=== PATIENT | female | born 1940 | race Caucasian/White ===

== ENCOUNTER 2024-08-13 07:46 | Day surgery (SDC) | payer MEDICARE, BC ==
[2024-08-09 15:26] LABS: BASOPHILS # (AUTO) 0.1 X10'3 (0-0.2); EOSINOPHILS # (AUTO) 0.3 X10'3 (0-0.9); EOSINOPHILS % (AUTO) 3.7 % (0-6); HEMATOCRIT 42.6 % (35.0-45.0); HEMOGLOBIN 14.5 g/dl (12.0-16.0); LYMPHOCYTES # (AUTO) 2.4 X10'3 (1.1-4.8); LYMPHOCYTES % (AUTO) 33.5 % (21-51); MEAN CORPUSCULAR HEMOGLOBIN 31.5 PG (27.0-31.0); MEAN CORPUSCULAR VOLUME 92.6 FL (78-98); MEAN PLATELET VOLUME 6.4 FL (7.4-10.4); MONOCYTES # (AUTO) 0.4 X10'3 (0-0.9); MONOCYTES % (AUTO) 5.8 % (2-12); PLATELET COUNT 333 X10'3 (140-440); RED CELL DISTRIBUTION WIDTH 13.6 % (11.5-14.5); WHITE BLOOD COUNT 7.1 X10'3 (4.5-11.0)
[2024-08-09 16:03] LABS: ALANINE AMINOTRANSFERASE 25 U/L (12-78); ALBUMIN 3.6 G/DL (3.4-5.0); ALBUMIN/GLOBULIN RATIO 1.2 (1.1-1.5); ALKALINE PHOSPHATASE 111 IU/L (46-116); ANION GAP 4 (8-16); ASPARTATE AMINO TRANSFERASE 20 U/L (10-37); BILIRUBIN,TOTAL 0.3 MG/DL (0.1-1.0); BLOOD UREA NITROGEN 12 MG/DL (7-18); CALCIUM 10.3 MG/DL (8.5-10.1); CHLORIDE 106 MMOL/L (99-107); CREATININE 0.92 MG/DL (0.40-0.90); GLUCOSE 132 MG/DL (70-104); POTASSIUM 4.1 MMOL/L (3.5-5.1); SODIUM 140 MMOL/L (135-145); TOTAL CARBON DIOXIDE 29.8 MMOL/L (24-32); TOTAL PROTEIN 6.7 G/DL (6.4-8.2); eGFR 58 ML/MIN
[2024-08-13] VITALS (8 sets, daily range): BP systolic 151–171; BP diastolic 68–89; PULSE 54–74; RESP 11–17; TEMP 97.6; O2SAT 95–98
[~2024-08-13] VITALS: Ht 172.7 cm; Wt 72.6 kg
[2024-08-13] MEDS: cefazolin 2gm/D5W 100mL 100 ML IV ONE (05:30)
[2024-08-13] MEDS ORDERED: hydrALAZINE 20mg/ml inj. IV PRN (07:50)
[2024-08-13] MEDS ORDERED: ondansetron/PF 4mg/2ml inj IV PRN (07:50)
[2024-08-13] MEDS ORDERED: morphine 4 MG/ML inj SYRINge IV PRN (07:50)
[2024-08-13] MEDS ORDERED: labetalol 20mg/4ml (5mg/ml) syringe IV PRN (07:50)
[2024-08-13] MEDS ORDERED: ringers solution, lacted 1,000 ML IV SCH (07:50)
[2024-08-13] MEDS ORDERED: fentaNYL/PF 50MCG/1 ML 2ML syringe IV PRN ×2 (07:50)
[2024-08-13] MEDS ORDERED: morphine 2 MG/ML inj. syringe IV PRN (07:50)
[2024-08-13] MEDS ORDERED: NO HOME MEDS (08:55)
[2024-08-13] MEDS: ringers solution, lacted 1,000 ML IV SCH (08:56)
[2024-08-13] MEDS: famotidine 20mg tablet PO ONE (08:56)
[2024-08-13] MEDS ORDERED: BUPIVAcaine 0.5% inj/PF 30 ML ONE (09:14)
[2024-08-13] MEDS ORDERED: BUPIVACAINE liposomal/PF 13.3 MG/ML vial IM ONE (09:14)
[2024-08-13] MEDS ORDERED: fentaNYL/PF 50MCG/1 ML 2ML syringe ONE (09:58)
[2024-08-13] MEDS ORDERED: midazolam 1 mg/ML 2ml injection ONE (09:59)
[2024-08-13] MEDS ORDERED: sevoflurane 250ml liquid IH ONE (10:17)
[2024-08-13] MEDS ORDERED: dexamethasone sod phosphate 4mg/ml inj. ONE (10:41)
[2024-08-13] MEDS ORDERED: acetaminophen 1,000mg/100ml IV 100 ML IV ONE (10:41)
[2024-08-13] MEDS ORDERED: ondansetron/PF 4mg/2ml inj ONE (10:41)
== END 2024-08-13 12:50 | disposition home or self-care (01) ==
LOC: PAS 07:46
PROVIDERS: ATTEND Orthopaedic Surgery Hand Surgery
DX: S52.572A Other intraarticular fracture of lower end of left radius, initial encounter for closed fracture (principal); G89.18 Other acute postprocedural pain; R00.1 Bradycardia, unspecified; Z87.891 Personal history of nicotine dependence; Z79.899 Other long term (current) drug therapy; W18.30XA Fall on same level, unspecified, initial encounter; Y93.89 Activity, other specified; Y92.89 Other specified places as the place of occurrence of the external cause; Y99.8 Other external cause status
CPT/HCPCS: 25609; 36415; 64415; 64417; 80053; 82948; 85025; 93005; A4215; A4618; A6402; A6449; A7000; C1713; C9290; J0131; J0690; J1100; J2001; J2250; J2405; J2704; J3010; J3490; J7030; J7120; Z7506; Z7508; Z7512; Z7610